=== PATIENT | male | born 1995 | race African-American/Black ===

== ENCOUNTER 2020-08-06 00:30 | Emergency (ER) | payer SELFPAY ==
[2020-08-06] MEDS ORDERED: PROCHLORPERAZINE 10MG/2ML INJ ONE (01:45)
[2020-08-06] MEDS ORDERED: KETOROLAC 30MG VIAL (30MG/ML) ONE (01:45)
[2020-08-06] MEDS ORDERED: DiphenhydrAMINE HCL 50 MG/ML VIAL ONE (01:45)
== END 2020-08-06 02:58 | disposition home or self-care (01) ==
LOC: EDH 00:30
DX: G44.209 Tension-type headache, unspecified, not intractable (principal); G43.909 Migraine, unspecified, not intractable, without status migrainosus; J01.00 Acute maxillary sinusitis, unspecified
CPT/HCPCS: 70450; 96374; 96375; 99284; J0780; J1200; J1885